=== PATIENT | male | born 1995 | race Caucasian/White ===

== ENCOUNTER 2016-10-25 11:54 | Emergency (ER) | payer BC ==
--- NOTE | 2016-10-25 13:06 | RAD ---
HISTORY: Right periorbital fracture, facial trauma COMPARISONS: None TECHNIQUE: Multiple contiguous axial CT scans were obtained of the face without intravenous contrast, with coronal and sagittal multiplanar reformations. FINDINGS: BONES: There is no displaced fracture or dislocation. The orbital rim is intact. The zygomatic arch is intact. The pterygoid plates are intact. ORBITS: The globes are round. The optic nerves are symmetric. The extraocular musculature is normal. There is no post septal or intraconal inflammatory change. There is no retrobulbar hematoma. PARANASAL SINUSES: The paranasal sinuses are clear. BRAIN AND SOFT TISSUE: Unremarkable. OTHER: None. IMPRESSION: NO FACIAL FRACTURE
--- NOTE | 2016-10-25 14:00 | ED ---
Laceration/Wound HPI - HPI Summary HPI Summary: 21 male presents to ED with complaints of a laceration above his right eye that he sustained from an elbow to his face while playing basketball. Patient admits to it bleeding however it is now controlled. Tetanus was updated a few months ago. Admits to swelling, bruising and soreness to area that was hit. Has not taken any medication. Denies vision loss or changes. Denies headache, epistaxis , nausea, vomiting and tinnitus. No LOC. No other injuries or complaints at this time. No PMHx - History of Current Complaint Stated Complaint: EYE LACERATION Time Seen by Provider: 10/25/16 12:04 Hx Obtained From: Patient Mechanism of Injury: Sharp/Blunt Trauma Onset/Duration: Sudden Onset Aggravating: Movement Alleviating: Compression Onset Severity: Moderate Current Severity: Mild Pain Intensity: 4 Pain Scale Used: 0-10 Numeric Associated Signs & Symptoms: Redness - swelling, bruising, Pain - Allergy/Home Medications Allergies/Adverse Reactions: Allergies Allergy/AdvReac Type Severity Reaction Status Date / Time No Known Allergies Allergy Verified 10/25/16 13:26 PMH/Surg Hx/FS Hx/Imm Hx Endocrine/Hematology History: Denies: Hx Diabetes Cardiovascular History: Denies: Hx Hypertension Respiratory History: Denies: Hx Asthma Sensory History: Denies: Hx Contacts or Glasses Opthamlomology History: Denies: Hx Contacts or Glasses - Surgical History Surgery Procedure, Year, and Place: DENTAL SURGERIES - Immunization History Date of Tetanus Vaccine: UTD 2016 Immunizations Up to Date: Yes Infectious Disease History: No Infectious Disease History: Denies: Hx of Known/Suspected MRSA, Traveled Outside the [place] in Last 30 Days - Family History Known Family History: Positive: None - Social History Alcohol Use: Occasionally Substance Use Type: Reports: None Smoking Status (MU): Never Smoked Tobacco Review of Systems Constitutional: Negative Eyes: Negative ENT: Negative Cardiovascular: Negative Respiratory: Negative Positive: Bruising - right periorbital lateral eye , Other - laceration below right eyebrow Neurological: Negative All Other Systems Reviewed And Are Negative: Yes Physical Exam Triage Information Reviewed: Yes Vital Signs On Initial Exam: Initial Vitals Temp Pulse Resp BP Pulse Ox 98.5 F 81 17 136/66 97 10/25/16 12:01 10/25/16 12:01 10/25/16 12:01 10/25/16 12:01 10/25/16 12:01 Vital Signs Reviewed: Yes Appearance: Positive: Well-Appearing, No Pain Distress Skin: Positive: Warm, Skin Color Reflects Adequate Perfusion, Dry, Other - 1cm linear laceration superficial no SQ involvement ~.25cm wide below right eyebrow , above right eyelid, without foreign body, approximates nicely. no active bleeding, clean. some ecchymosis and edema noted over lateral zygomatic bone, right side. tender to touch. Negative: Cold, Tender, Cyanosis @, Pale Head/Face: Positive: Normal Head/Face Inspection - besides noted above, Other - facial bone tenderness of right lateral zygomatic bone, contusion noted with some edema, no epistaxis, racoon eye or battles signs.. Negative: Temporal Artery Tenderness, Scalp, Cephalohematoma Eyes: Positive: Normal, EOMI, GILLIAN, Conjunctiva Clear ENT: Positive: Normal ENT inspection, Hearing grossly normal, Pharynx normal, TMs normal Neck: Positive: Supple, Nontender Respiratory/Lung Sounds: Positive: Clear to Auscultation, Breath Sounds Present. Negative: Decreased Breath Sounds, Rales, Rhonchi, Wheezes Cardiovascular: Positive: Normal, RRR, Pulses are Symmetrical in both Upper and Lower Extremities. Negative: Murmur, Rub Musculoskeletal: Positive: Normal, Strength/ROM Intact, Pain @ - over right zygomatic lateral bone Neurological: Positive: Normal, Sensory/Motor Intact - sensation intact, Alert, Oriented to Person Place, Time Psychiatric: Positive: Affect/Mood Appropriate - Sonia Coma Scale Best Eye Response: 4 - Spontaneous Best Motor Response: 6 - Obeys Commands Best Verbal Response: 5 - Oriented Coma Scale Total: 15 Procedures - Laceration/Wound Repair 1 Location: face - below right eyebrow Description: Linear Length, Depth and Shape: 1cm, linear, epidermal superficial Irrigated w/ Saline (ccs): 100 Laceration/Wound Explored: clean, no foreign body removed Closure: Skin Adhesive - closed nicely, well approximated Sterile Dressing Applied?: Yes Diagnostics - Vital Signs Vital Signs Temp Pulse Resp BP Pulse Ox 10/25/16 12:47 98.5 F 81 17 136/66 98 10/25/16 12:01 98.5 F 81 17 136/66 97 - Laboratory Lab Statement: Any lab studies that have been ordered have been reviewed, and results considered in the medical decision making process. - CT maxillofacial CT Interpretation: No Acute Changes - NO FACIAL FRACTURE CT Interpretation Completed By: Radiologist Laceration Repair Course/Dx - Course Course Of Treatment: CT maxillofacial obtained to rule out facial bone fracture and was negative. laceration was cleaned and glued with skin adhesive due to depth only epidermal layer and was well approximated. patient tolerated procedure well and without complication. no signs or symptoms of concussion at this time. No other complaints at this time. RICE and NSAIDs. Aware of worsening signs and symptoms. Follow up pcp. Keep clean and dry. tetanus already up to date. - Differential Dx Differental Diagnoses: Abrasion, Avulsion, Fracture, Laceration, Other - concussion, headache - Clinical Impression Provider Diagnoses: Laceration Discharge - Discharge Plan Condition: Stable Disposition: HOME Patient Education Materials: Laceration (ED), Skin Adhesive Care (ED) Referrals: [facility], [Primary Care Provider] - Additional Instructions: Do not get wet for at least 48 hours. Do not submerge in water for atleast 7 days. Keep clean and dry. Keep covered for 3 days. If appears to be infected please seek medical attention. After 3 days you may apply triple antibiotic ointment. If re-opens/bleeding, please seek medial attention. Cool compresses and ibuprofen to help with contusion and swelling. Follow up with [facility].
[2016-10-25 14:48] VITALS: BP 129/64
== END 2016-10-25 14:47 | disposition home or self-care (01) ==
LOC: ED 11:54
DX: S01.111A Laceration without foreign body of right eyelid and periocular area, initial encounter (principal); S00.11XA Contusion of right eyelid and periocular area, initial encounter; W50.0XXA Accidental hit or strike by another person, initial encounter; Y93.67 Activity, basketball; Y92.9 Unspecified place or not applicable; Y99.9 Unspecified external cause status
CPT/HCPCS: 70486; 99282